=== PATIENT | female | born 1955 | race Caucasian/White ===

== ENCOUNTER 2023-09-01 10:03 | Day surgery (SDC) | payer MEDICARE ==
[2023-09-01] MEDS ORDERED: Lactated Ringers 1,000 ML IV ONE ×2 (10:21→12:31)
[2023-09-01] MEDS ORDERED: Lactated Ringers 1,000 ML IV SCH (10:30)
[2023-09-01 10:47] VITALS: RESP 18
[2023-09-01] MEDS ORDERED: Versed 2 MG/2 ML Injection ONE (11:51)
[2023-09-01] MEDS ORDERED: DIPRIVAN 200 MG/20 ML IV ONE ×6 (11:51→13:22)
[2023-09-01] MEDS ORDERED: SUBLIMAZE 100 MCG/2 ML ONE (12:19)
[2023-09-01] MEDS ORDERED: GlucaGen 1 MG ONE (12:42)
[2023-09-01 14:22] VITALS: O2SAT 94
[2023-09-01 14:35] VITALS: BP 108/85; PULSE 94; TEMP 97
--- NOTE | 2023-09-03 13:19 | OP ---
PROCEDURE DATE/TIME: 09/01/2023 1208 PREOPERATIVE DIAGNOSIS: Screening. POSTOPERATIVE DIAGNOSES: 1) Multiple anal tags. 2) Mild diverticulosis. 3) Hemorrhoid disease. 4) Colorectal polyp. 5) Long tortuous colon. 6) Poor prep. PROCEDURE: Colonoscopy to the proximal ascending colon with cold snare rectal polypectomy and cold forceps rectal polypectomy. PROCEDURE PERFORMED BY: Lanie Jack M.D. COMPLICATIONS: None. ESTIMATED BLOOD LOSS: None. ANESTHESIA: MAC. SPECIMEN: None. HISTORY: This is a patient who presents for screening colonoscopy. Risks, benefits and alternatives had been discussed with the patient preoperatively. Her H&P and consent have been reviewed with her and confirmed. All of her questions were answered. DESCRIPTION OF PROCEDURE: She was brought to the endoscopy suite, laid in the left lateral decubitus position. A complete time out performed. First, a peripheral rectal inspection and then rectal exam. The patient had quite significant anal tags. They were all small. They all appeared to be benign. They all looked like standard anal tags. She also had hemorrhoid disease as well with internal and external hemorrhoids that are of moderate disease. I do not see anything that I think she needs acute surgical intervention on but should these recovery collector time, she will need to have these examined and reconsidered. The scope is then inserted and gently advanced to the level of what appeared to be the proximal ascending colon. The colon was very tortuous. It was very long, multiple sharp angulations. We did attempt to reposition the patient and apply gentle abdominal pressure. We also gave her Glucagon due to spasm in the sigmoid. Despite all of these attempts we were unable to fully intubate the cecum. It appears that these are in the region of the proximal ascending colon and I believe we are seeing the edge of the ileocecal valve from a distance. However, I cannot confirm this because we cannot put the scope further. We are hugged at the end of the scope. After multiple attempts to try to straighten the colon and allow intubation of the cecum, we then aborted and then gently withdrew the scope watching as many areas as possible and attempting to get a view of as much mucosa as possible. The patient did have quite a bit of staining. Overall her prep was not satisfactory in many areas and was poor. There were however some areas of satisfactory prep but was enough area to make me feel comfortable that we have had a good exam. We did have two polyps that were identified. They were the rectal polyps taken with cold forceps that were very small and then there was another more distal rectal polyp this was quite distal and it was about 6 to 7 mm. It was taken with cold snare. Both polyps were taken in entirety. Both received. Both sent to pathology and both sites hemostatic after removal. PLAN: Due to the finding of polyps, poor prep, incomplete colonoscopy with poor visualization, I would like to repeat her colonoscopy within the next year or discuss with her doing a CT colonography. We will have this discussion when we meet to go over her pathology report. I have also talked with her family about these findings as well.
== END 2023-09-01 14:40 | disposition home or self-care (01) ==
LOC: SDC 10:03
PROVIDERS: ATTEND Surgery
DX: Z12.11 Encounter for screening for malignant neoplasm of colon (principal); K64.4 Residual hemorrhoidal skin tags; K57.30 Diverticulosis of large intestine without perforation or abscess without bleeding; K64.8 Other hemorrhoids; K63.5 Polyp of colon
CPT/HCPCS: J1610; J2250; J2704; J3010